=== PATIENT | female | born 1995 | race African-American/Black ===

== ENCOUNTER 2016-10-09 11:35 | Emergency (ER) | payer MEDICAID ==
[~2016-10-09] VITALS: Ht 162.6 cm; Wt 59.0 kg
[2016-10-09] MEDS ORDERED: SODIUM CHLORIDE 0.9% 1,000 ML IV ONE (11:51)
[2016-10-09] MEDS ORDERED: MORPHINE SULFATE 4 MG/ML CPJ (NOT FOR IM USE) IV STA (11:51)
[2016-10-09] MEDS ORDERED: ONDANSETRON HCL 4MG/2ML VIAL IV STA (11:51)
[2016-10-09 12:23] LABS: BASOPHILS % 0.7 % (0.0-2.0); EOSINOPHILS % 0.3 % (0.0-5.0); HEMATOCRIT. 37.8 % (36.0-48.0); HEMOGLOBIN. 12.6 g/dL (12.0-16.0); LYMPHOCYTES % 12.3 % (20.0-50.0); MEAN CORPUSCULAR HEMOGLOBIN 29.5 pg (28.0-32.0); MEAN CORPUSCULAR HGB CONC 33.2 g/dL (31.0-37.0); MEAN CORPUSCULAR VOLUME 88.6 fL (81.0-99.0); MEAN PLATELET VOLUME 7.4 fl (7.4-10.4); MONOCYTES % 5.1 % (2.0-8.0); NEUTROPHILS % 81.6 % (40.0-76.0); PLATELET 238 x1000/uL (130-400); RED BLOOD CELL COUNT 4.27 mill/uL (4.2-5.4); RED CELL DISTRIBUTION WIDTH 12.7 % (11.6-14.6); WHITE BLOOD COUNT 8.4 x1000/uL (4.5-11.0)
[2016-10-09] MEDS ORDERED: SODIUM CHLORIDE 0.9% 10ML VIAL ONE (12:24)
[2016-10-09] MEDS ORDERED: IOHEXOL-300 100 ML BOTTLE ONE (12:24)
[2016-10-09 12:27] LABS: CHLORIDE 109 mEq/L (98-107); INDEX HEMOLYSI 1 (1-3); INDEX ICTERIC 1 (1-4); INDEX LIPEMIC 1 (1-3)
[2016-10-09 12:35] LABS: ALANINE AMINOTRANSFERASE 20 IU/L (13-61); ALBUMIN 3.6 g/dL (3.4-5.0); ANION GAP 13; CALCIUM 8.5 mg/dL (8.5-10.1); CARBON DIOXIDE 23 mEq/L (21-32); LIPASE 268 IU/L (73-393); UREA NITROGEN BLOOD 8 mg/dL (7-21); eGFR > 60 mL/min (>60)
[2016-10-09 13:02] LABS: HCG SCREEN NEGATIVE
[2016-10-09 13:19] LABS: CLARITY URINE CLEAR (CLEAR); COLOR URINE YELLOW (YELLOW); GLUCOSE URINE NEGATIVE (NEGATIVE); KETONES URINE NEGATIVE (NEGATIVE); LEUKOCYTE ESTERASE URINE 1+ (NEGATIVE); NITRITE URINE NEGATIVE (NEGATIVE); OCCULT BLOOD URINE 2+ (NEGATIVE); PROTEIN URINE NEGATIVE (NEGATIVE); SPECIFIC GRAVITY URINE 1.018 (1.005-1.030); UROBILINOGEN URINE 0.2 E.U./dL (0.2-1.0)
[2016-10-09] MEDS ORDERED: KETOROLAC 30MG/ML VIAL IV ONE (14:00)
[2016-10-09 14:03] LABS: BACTERIA URINE TRACE; MUCUS URINE TRACE /lpf (< = 2+); SQUAMOUS EPITHELIAL CELL URINE 1+ /lpf (RARE/1+)
[2016-10-09 14:04] LABS: RBC URINE 0-2 /hpf (0-2); WBC URINE 0-2 /hpf (0-2)
[2016-10-09 16:30] VITALS: BP 123/56
== END 2016-10-09 17:15 | disposition home or self-care (01) ==
LOC: ER 12:39
DX: R10.84 Generalized abdominal pain (principal); R11.2 Nausea with vomiting, unspecified; R19.7 Diarrhea, unspecified
CPT/HCPCS: 36415; 74177; 80053; 81001; 83690; 84703; 85025; 96361; 96374; 96375; 99285; A4216; J1885; J2270; J2405; J7030; Q9967; Z7610